=== PATIENT | female | born 1980 | race Two or more races ===

== ENCOUNTER 2021-09-05 08:00 | Day surgery (SDC) | payer OTHER | END 2021-09-05 14:20 | disposition home or self-care (01) | LOC: AMB-ENDOS 08:00 → CIR.AMB 14:15 → AMB-ENDOS 14:20 | PROVIDERS: ATTEND Colon & Rectal Surgery | DX: K64.4 Residual hemorrhoidal skin tags (principal); K62.5 Hemorrhage of anus and rectum; Z20.822 Contact with and (suspected) exposure to COVID-19; I10 Essential (primary) hypertension ==